=== PATIENT | male | born 1945 | race African-American/Black ===

== ENCOUNTER 2018-09-07 16:58 | Inpatient (IN) | payer OTHER ==
[2018-09-07 18:41] VITALS: BMI 23.5
--- NOTE | 2018-09-07 20:52 | HP ---
CIWA Score Nausea/Vomitin-Mild Nausea/No Vomiting Muscle Tremors: 3 Anxiety: 2 Agitation: 2 Paroxysmal Sweats: 1-Minimal Palms Moist Orientation: 1-Uncertain about Date Tacttile Disturbances: 2-Mild Itch/Numbness/Burn Auditory Disturbances: 0-None Visual Disturbances: 0-None Headache: 0-None Present CIWA-Ar Total Score: 12 - Admission Criteria OASAS Guidelines: Admission for Medically Managed Detox: Requires at least one of the followin. CIWA greater than 12 2. Seizures within the past 24 hours 3. Delirium tremens within the past 24 hours 4. Hallucinations within the past 24 hours 5. Acute intervention needed for co occurring medical disorder 6. Acute intervention needed for co occurring psychiatric disorder 7. Severe withdrawal that cannot be handled at a lower level of care (continued vomiting, continued diarrhea, abnormal vital signs) requiring intravenous medication and/or fluids 8. Patient presents the following: CIWA greater than 12 Admission Criteria Met: Admission criteria met Admission ROS S - HPI Chief Complaint: " Alcohol detox" Allergies/Adverse Reactions: Allergies Allergy/AdvReac Type Severity Reaction Status Date / Time No Known Allergies Allergy Verified 09/07/18 20:45 History of Present Illness: 73 yo male with hx of nicotine cocaine and alcohol dependence is here seeking alcohol detox. Reports hx of blackouts d/t alcohol use, last episode two months ago. Patient reports the following medical conditions: Prostate Cancer, OA, Gout, HTN. Psych denies hx. Denies suicidal / homicidal ideation Exam Limitations: No Limitations - Ebola screening Have you traveled outside of the country in the last 21 days: No (N) Have you had contact with anyone from an Ebola affected area: No Have you been sick,other than usual withdrawal symptoms: No Do you have a fever: No - Review of Systems Constitutional: Loss of Appetite, Weakness, Unintentional Wgt. Loss EENT: reports: No Symptoms Reported Respiratory: reports: No Symptoms reported Cardiac: reports: Chest Pain, Palpitations GI: reports: Nausea, Poor Appetite, Poor Fluid Intake : reports: See HPI Musculoskeletal: reports: Back Pain, Muscle Pain Integumentary: reports: Dryness, Pruritus Neuro: reports: No Symptoms reported, Dizziness Hematology: reports: No Symptoms Reported Psychiatric: reports: Orientated x3, Anxious Other Systems: Reviewed and Negative Patient History - Patient Medical History Hx Anemia: No Hx Asthma: No Hx Chronic Obstructive Pulmonary Disease (COPD): No Hx Cancer: No Hx Cardiac Disorders: No Hx Congestive Heart Failure: No Hx Hypertension: Yes Hx Hypercholesterolemia: Yes Hx Pacemaker: No HX Cerebrovascular Accident: No Hx Seizures: No Hx Dementia: No Hx Diabetes: No Hx Gastrointestinal Disorders: No Hx Liver Disease: No Hx Genitourinary Disorders: Yes (Prostate CA ) Hx Sexually Transmitted Disorders: Yes (Gonorrhea) Hx Renal Disease (ESRD): No Hx Thyroid Disease: No Hx Human Immunodeficiency Virus (HIV): No Hx Hepatitis C: No Hx Depression: No Hx Suicide Attempt: No Hx Bipolar Disorder: No Hx Schizophrenia: No - Patient Surgical History Past Surgical History: Yes Other Surgical History: Lung tumor removal 46 yo - PPD History Previous Implant?: No Documented Results: Negative w/o proof PPD to be Administered?: Yes - Smoking Cessation Smoking history: Current every day smoker Have you smoked in the past 12 months: Yes Aproximately how many cigarettes per day: 5 Hx Chewing Tobacco Use: No Initiated information on smoking cessation: Yes 'Breaking Loose' booklet given: 09/07/18 - Substance & Tx. History Hx Alcohol Use: Yes Hx Substance Use: Yes Substance Use Type: Alcohol Hx Substance Use Treatment: Yes (Three months ago [facility] ) - Substances Abused alcohol Route: Oral Frequency: Daily Amount used: 1/2 - 1 pint liquor Age of first use: 41 Date of Last Use: 09/05/18 cocaine Route: Inhalation Frequency: 1-2 times per week Amount used: $20 Age of first use: 63 Date of Last Use: 09/05/18 Family Disease History - Family Disease History Family Disease History: Diabetes: Father () Admission Physical Exam [facility] - Vital Signs Vital Signs: Vital Signs - 24 hr 09/07/18 18:39 Temperature 97.5 F L Pulse Rate 83 Respiratory 18 Rate Blood Pressure 155/91 - Physical General Appearance: Yes: Disheveled, Mild Distress, Thin, Tremorous, Anxious HEENTM: Yes: EOMI, Hearing grossly Normal, Normal ENT Inspection, Normocephalic , Normal Voice, SANDRA, Pharynx Normal, Tm's normal, Other (poor dentition) Respiratory: Yes: Chest Non-Tender, Lungs Clear, Normal Breath Sounds, No Respiratory Distress, No Accessory Muscle Use Neck: Yes: Within Normal Limits Breast: Yes: Breast Exam Deferred Cardiology: Yes: Regular Rhythm, Regular Rate Abdominal: Yes: Normal Bowel Sounds, Non Tender, Flat, Soft Genitourinary: Yes: Within Normal Limits Back: Yes: Normal Inspection Musculoskeletal: Yes: full range of Motion, Gait Steady, Pelvis Stable Extremities: Yes: Normal Capillary Refill, Normal Inspection, Normal Range of Motion, Non-Tender Neurological: Yes: 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 NML intact, Fully Oriented, Alert, Motor Strength 5/5, Depressed Affect Integumentary: Yes: Normal Color, Dry, Warm Lymphatic: Yes: Within Normal Limits - Diagnostic (1) Alcohol dependence with withdrawal Current Visit: Yes Status: Acute (2) Hypertension Current Visit: Yes Status: Chronic Qualifiers: Hypertension type: essential hypertension Qualified Code(s): I10 - Essential (primary) hypertension (3) Gout Current Visit: Yes Status: Chronic Qualifiers: Gout site: unspecified site (4) Arthritis Current Visit: Yes Status: Chronic (5) Prostate cancer Current Visit: Yes Status: Acute Cleared for Admission [facility] - Detox or Rehab [facility] Level of Care: Medically Managed Detox Regimen/Protocol: Librium [facility] Breath Alcohol Content Breath Alcohol Content: 0 Urine Drug Screen - Results Drug Screen Negative: No Urine Drug Screen Results: THC-Marijuana, K[place]-Cocaine Inpatient Rehab Admission - Rehab Decision to Admit Inpatient rehab admission?: No
[2018-09-07] MEDS ORDERED: BISMUTH SUBSALICYLATE 524 MG/30 ML UD PO PRN (21:01)
[2018-09-07] MEDS ORDERED: BACLOFEN 10 MG TABLET (FP) PO PRN (21:01)
[2018-09-07] MEDS ORDERED: ACETAMINOPHEN 325 MG TABLET (FP) PO PRN ×2 (21:01)
[2018-09-07] MEDS ORDERED: IBUPROFEN 400 MG TABLET (FP) PO PRN (21:01)
[2018-09-07] MEDS ORDERED: MAGNESIUM CITRATE 300 ML BOTTLE PO PRN (21:01)
[2018-09-07] MEDS ORDERED: MAG HYDROX/AL HYDROX/SIMETH 30 ML UNIT-DOSE CUP PO PRN (21:01)
[2018-09-07] MEDS ORDERED: MAGNESIUM HYDROX 2400MG/30ML ORAL SUSPENSION 30 ML CUP PO PRN (21:01)
[2018-09-07] MEDS ORDERED: chlordiazePOXIDE HCL 25 MG CAPSULE PO PRN (21:01)
[2018-09-08] MEDS: chlordiazePOXIDE HCL 25 MG CAPSULE PO SCH ×5 (00:05→22:02)
[2018-09-08] MEDS: THIAMINE HCL 100 MG TABLET (FP) PO SCH ×2 (00:07→22:02)
[2018-09-08] MEDS: MELATONIN 5 MG TABLETS PO PRN ×2 (00:12→22:02)
[2018-09-08] MEDS: LIDOCAINE PATCH REMOVAL MC SCH ×2 (00:12→22:50)
[2018-09-08 01:48] LABS: URINE APPEARANCE SLCLOUDY; URINE COLOR AMBER; URINE GLUCOSE (UA) NEGATIVE (NEGATIVE); URINE KETONE NEGATIVE (NEGATIVE); URINE LEUK ESTERASE NEGATIVE (NEGATIVE); URINE NITRITE NEGATIVE (NEGATIVE); URINE PROTEIN 2+ (NEGATIVE); URINE UROBILINOGEN 4.0 E.U/dl mg/dL (0.2-1.0)
[2018-09-08 02:07] LABS: EPI CELLS RARE /HPF (FEW); URINE HYALINE CAST 12 /lpf; URINE MUCUS FEW
[2018-09-08] MEDS: PRENATAL VITAMINS W/ FOLIC ACID TABLET (FP) PO SCH (10:17)
[2018-09-08] MEDS: LIDOCAINE 5% TOPICAL PATCH TP SCH (10:18)
--- NOTE | 2018-09-08 10:45 | EKG ---
Test Reason : Blood Pressure : / mmHG Vent. Rate : 076 BPM Atrial Rate : 076 BPM P-R Int : 152 ms QRS Dur : 092 ms QT Int : 394 ms P-R-T Axes : 063 007 043 degrees QTc Int : 443 ms NORMAL SINUS RHYTHM NORMAL ECG NO PREVIOUS ECGS AVAILABLE Confirmed by Chapo Linder MD ([id number]) on 09/08/2018 10:44:40 AM Referred By: LUDIN BURNS Confirmed By:Chapo Linder MD
[2018-09-08] MEDS ORDERED: SODIUM CHLORIDE NASAL SPRAY 44 ML BOTTLE NS PRN (11:05)
--- NOTE | 2018-09-08 11:05 | PN ---
S CIWA - CIWA Score Nausea/Vomitin-No Nausea/No Vomiting Muscle Tremors: 3 Anxiety: 3 Agitation: 3 Paroxysmal Sweats: 3 Orientation: 0-Oriented Tacttile Disturbances: 0-None Auditory Disturbances: 0-None Visual Disturbances: 0-None Headache: 0-None Present CIWA-Ar Total Score: 12 S Progress Note (SOAP) Subjective: nasal congestions sweats irritable tired shakes Objective: 09/08/18 11:03 Vital Signs Temperature 97.4 F L 09/08/18 09:33 Pulse Rate 77 09/08/18 09:33 Respiratory Rate 18 09/08/18 09:33 Blood Pressure 138/77 09/08/18 09:33 O2 Sat by Pulse Oximetry (%) Laboratory Tests 09/07/18 23:10 Urine Color [place] Urine Appearance Slcloudy Urine pH 5.0 Ur Specific [place] 1.026 Urine Protein 2+ H Urine Glucose (UA) Negative Urine Ketones Negative Urine Blood Negative Urine Nitrite Negative Urine Bilirubin 4.0 Urine Urobilinogen 4.0 e.u/dl Ur Leukocyte Esterase Negative Urine WBC (Auto) 5 Urine RBC (Auto) 1 Ur Epithelial Cells Rare Hyaline Casts 12 Urine Mucus Few rest of lab pending aaox3 ambulating no acute distress Assessment: 09/08/18 11:04 withdrawal sx Plan: continue detox increase fluids pending labs
[2018-09-08 11:21] LABS: HEMATOCRIT 36.7 % (35.4-49); MCH 36.4 pg (25.7-33.7); MCHC 35.3 g/dl (32.0-35.9); MEAN CELL VOLUME 103.1 fl (80-96); MEAN PLT VOLUME 8.7 fl (7.5-11.1); PLATELET COUNT 134 K/MM3 (134-434); RBC 3.56 M/mm3 (4.00-5.60); RDW 13.4 % (11.9-15.9); WHITE BLOOD COUNT 3.6 K/mm3 (4.0-10.0)
[2018-09-08 11:42] LABS: ALK PHOS 76 U/L (45-117); ANION GAP 6 MMOL/L (8-16); BILIRUBIN,TOTAL 0.6 mg/dL (0.2-1); BLOOD UREA NITROGEN 8 mg/dL (7-18); CALCIUM 8.1 mg/dL (8.5-10.1); CHLORIDE 104 mmol/L (98-107); CO2 31 mmol/L (21-32); CREATININE 0.9 mg/dL (0.55-1.3); GLUCOSE,RANDOM 90 mg/dL (74-106); SGOT/AST 136 U/L (15-37); SGPT/ALT 67 U/L (13-61); SODIUM 141 mmol/L (136-145); TOT PROT 6.8 g/dl (6.4-8.2)
[2018-09-08] MEDS ORDERED: FLU VACCINE QUAD 60 MCG/0.5 ML (MDV 18-19) IM ONE (12:00)
[2018-09-08] MEDS: TAMSULOSIN HCL 0.4 MG CAP PO SCH (22:02)
[2018-09-08] MEDS: amLODIPine BESYLATE 10 MG TABLET (FP) PO SCH (22:02)
[2018-09-09] MEDS: chlordiazePOXIDE HCL 25 MG CAPSULE PO SCH ×3 (05:32→18:17)
[2018-09-09] MEDS: PRENATAL VITAMINS W/ FOLIC ACID TABLET (FP) PO SCH (10:34)
[2018-09-09] MEDS: amLODIPine BESYLATE 10 MG TABLET (FP) PO SCH (10:34)
[2018-09-09] MEDS: LIDOCAINE 5% TOPICAL PATCH TP SCH (10:35)
--- NOTE | 2018-09-09 11:43 | PN ---
[facility] CIWA - CIWA Score Nausea/Vomitin-No Nausea/No Vomiting Muscle Tremors: 3 Anxiety: 2 Agitation: 3 Paroxysmal Sweats: 2 Orientation: 0-Oriented Tacttile Disturbances: 0-None Auditory Disturbances: 0-None Visual Disturbances: 0-None Headache: 0-None Present CIWA-Ar Total Score: 10 [facility] Progress Note (SOAP) Subjective: agitation sweats body aches Objective: 09/09/18 11:42 Vital Signs Temperature 97.3 F L 09/09/18 09:47 Pulse Rate 84 09/09/18 09:47 Respiratory Rate 18 09/09/18 09:47 Blood Pressure 132/77 09/09/18 09:47 O2 Sat by Pulse Oximetry (%) Laboratory Tests 09/07/18 09/08/18 09/08/18 23:10 07:30 07:30 WBC 3.6 L RBC 3.56 L Hgb 13.0 Hct 36.7 MCV 103.1 H MCH 36.4 H MCHC 35.3 RDW 13.4 Plt Count 134 MPV 8.7 Sodium 141 Potassium 3.0 L Chloride 104 Carbon Dioxide 31 Anion Gap 6 L BUN 8 Creatinine 0.9 Creat Clearance w eGFR 82.95 Random Glucose 90 Calcium 8.1 L Total Bilirubin 0.6 AST 136 H ALT 67 H Alkaline Phosphatase 76 Total Protein 6.8 Albumin 3.0 L Urine Color [place] Urine Appearance Slcloudy Urine pH 5.0 Ur Specific [place] 1.026 Urine Protein 2+ H Urine Glucose (UA) Negative Urine Ketones Negative Urine Blood Negative Urine Nitrite Negative Urine Bilirubin 4.0 Urine Urobilinogen 4.0 e.u/dl Ur Leukocyte Esterase Negative Urine WBC (Auto) 5 Urine RBC (Auto) 1 Ur Epithelial Cells Rare Hyaline Casts 12 Urine Mucus Few RPR Titer 09/08/18 07:30 WBC RBC Hgb Hct MCV MCH MCHC RDW Plt Count MPV Sodium Potassium Chloride Carbon Dioxide Anion Gap BUN Creatinine Creat Clearance w eGFR Random Glucose Calcium Total Bilirubin AST ALT Alkaline Phosphatase Total Protein Albumin Urine Color Urine Appearance Urine pH Ur Specific [place] Urine Protein Urine Glucose (UA) Urine Ketones Urine Blood Urine Nitrite Urine Bilirubin Urine Urobilinogen Ur Leukocyte Esterase Urine WBC (Auto) Urine RBC (Auto) Ur Epithelial Cells Hyaline Casts Urine Mucus RPR Titer Nonreactive labs noted potassium low will order kdur to replenish repeat labs ordered Assessment: 09/09/18 11:43 withdrawal sx Plan: continue detox increase fluids kdur x 2 days labs repeated
[2018-09-09] MEDS ORDERED: POTASSIUM CHLORIDE TABS 20 MEQ TABLET.ER (FP) PO SCH (11:45)
[2018-09-09] MEDS ORDERED: PNEUMOC 13-VAL CONJ-DIP CRM/PF 0.5 ML DISP.SYRIN IM ONE (12:00)
[2018-09-09] MEDS: POTASSIUM CHLORIDE TABS 20 MEQ TABLET.ER (FP) PO SCH (14:01)
[2018-09-09] MEDS: TAMSULOSIN HCL 0.4 MG CAP PO SCH (22:04)
[2018-09-09] MEDS: THIAMINE HCL 100 MG TABLET (FP) PO SCH (22:04)
[2018-09-09] MEDS: chlordiazePOXIDE HCL 10 MG CAPSULE PO SCH (22:04)
[2018-09-09] MEDS: MELATONIN 5 MG TABLETS PO PRN (22:05)
[2018-09-09] MEDS: LIDOCAINE PATCH REMOVAL MC SCH (22:06)
[2018-09-09] MEDS ORDERED: chlordiazePOXIDE HCL 10 MG CAPSULE PO PRN (23:00)
[2018-09-10] MEDS: chlordiazePOXIDE HCL 10 MG CAPSULE PO SCH ×4 (05:47→22:32)
[2018-09-10] MEDS: amLODIPine BESYLATE 10 MG TABLET (FP) PO SCH (10:50)
[2018-09-10] MEDS: PRENATAL VITAMINS W/ FOLIC ACID TABLET (FP) PO SCH (10:50)
[2018-09-10] MEDS: POTASSIUM CHLORIDE TABS 20 MEQ TABLET.ER (FP) PO SCH (10:51)
[2018-09-10] MEDS: LIDOCAINE 5% TOPICAL PATCH TP SCH (10:53)
[2018-09-10 11:03] LABS: BASO % 0.4 % (0-2.0); EOS % 4.3 % (0-4.5); HEMATOCRIT 35.3 % (35.4-49); LYMPH % 19.3 % (8-40); MCH 35.3 pg (25.7-33.7); MCHC 33.9 g/dl (32.0-35.9); MEAN PLT VOLUME 8.9 fl (7.5-11.1); MONO % 12.3 % (3.8-10.2); NEUT % 63.7 % (42.8-82.8); PLATELET COUNT 137 K/MM3 (134-434); RBC 3.39 M/mm3 (4.00-5.60); WHITE BLOOD COUNT 3.6 K/mm3 (4.0-10.0)
[2018-09-10 13:22] LABS: ALBUMIN 2.9 g/dl (3.4-5.0); ALK PHOS 69 U/L (45-117); BILIRUBIN,TOTAL 0.2 mg/dL (0.2-1); BLOOD UREA NITROGEN 13 mg/dL (7-18); CALCIUM 8.8 mg/dL (8.5-10.1); CHLORIDE 107 mmol/L (98-107); CREATININE 0.9 mg/dL (0.55-1.3); GLUCOSE,RANDOM 89 mg/dL (74-106); POTASSIUM 3.4 mmol/L (3.5-5.1); SGPT/ALT 58 U/L (13-61); SODIUM 142 mmol/L (136-145); TOT PROT 6.4 g/dl (6.4-8.2)
[2018-09-10 13:55] LABS: ANION GAP 6 MMOL/L (8-16); CO2 30 mmol/L (21-32); SGOT/AST 91 U/L (15-37)
--- NOTE | 2018-09-10 14:58 | PN ---
S Progress Note (SOAP) Subjective: Body Aches, Anxious, Fatigue. Objective: PATIENT A & O X 3, OBSERVED AMBULATING ON UNIT. IN NO ACUTE DISTRESS. 09/10/18 14:55 Vital Signs Temperature 97.1 F L 09/10/18 14:08 Pulse Rate 77 09/10/18 14:08 Respiratory Rate 16 09/10/18 14:08 Blood Pressure 148/78 09/10/18 14:08 O2 Sat by Pulse Oximetry (%) Laboratory Tests 09/07/18 09/08/18 09/08/18 23:10 07:30 07:30 WBC 3.6 L RBC 3.56 L Hgb 13.0 Hct 36.7 MCV 103.1 H MCH 36.4 H MCHC 35.3 RDW 13.4 Plt Count 134 MPV 8.7 Absolute Neuts (auto) Neutrophils % Lymphocytes % Monocytes % Eosinophils % Basophils % Nucleated RBC % Sodium 141 Potassium 3.0 L Chloride 104 Carbon Dioxide 31 Anion Gap 6 L BUN 8 Creatinine 0.9 Creat Clearance w eGFR 82.95 Random Glucose 90 Calcium 8.1 L Total Bilirubin 0.6 AST 136 H ALT 67 H Alkaline Phosphatase 76 Total Protein 6.8 Albumin 3.0 L Urine Color [place] Urine Appearance Slcloudy Urine pH 5.0 Ur Specific [place] 1.026 Urine Protein 2+ H Urine Glucose (UA) Negative Urine Ketones Negative Urine Blood Negative Urine Nitrite Negative Urine Bilirubin 4.0 Urine Urobilinogen 4.0 e.u/dl Ur Leukocyte Esterase Negative Urine WBC (Auto) 5 Urine RBC (Auto) 1 Ur Epithelial Cells Rare Hyaline Casts 12 Urine Mucus Few RPR Titer 09/08/18 09/10/18 09/10/18 07:30 07:30 07:30 WBC 3.6 L RBC 3.39 L Hgb 12.0 Hct 35.3 L MCV 104.0 H MCH 35.3 H MCHC 33.9 RDW 14.0 Plt Count 137 MPV 8.9 Absolute Neuts (auto) 2.3 Neutrophils % 63.7 Lymphocytes % 19.3 Monocytes % 12.3 H Eosinophils % 4.3 Basophils % 0.4 Nucleated RBC % 0 Sodium 142 Potassium 3.4 L Chloride 107 Carbon Dioxide 30 Anion Gap 6 L BUN 13 Creatinine 0.9 Creat Clearance w eGFR 82.95 Random Glucose 89 Calcium 8.8 Total Bilirubin 0.2 AST 91 H ALT 58 Alkaline Phosphatase 69 Total Protein 6.4 Albumin 2.9 L Urine Color Urine Appearance Urine pH Ur Specific [place] Urine Protein Urine Glucose (UA) Urine Ketones Urine Blood Urine Nitrite Urine Bilirubin Urine Urobilinogen Ur Leukocyte Esterase Urine WBC (Auto) Urine RBC (Auto) Ur Epithelial Cells Hyaline Casts Urine Mucus RPR Titer Nonreactive LABS NOTED.RESULTS OF REPEAT CBC AND CMP NOTED. REDUCTION IN AST LEVEL NOTED. ALT AND CA LEVELS NOW NOTED TO BE WITHIN NORMAL RANGE. 09/10/18 14:56 Assessment: 09/10/18 14:55 WITHDRAWAL SYMPTOMS. HYPERTENSION ELEVATED LIVER ENZYMES. HYPOKALEMIA. 09/10/18 14:55 Plan: CONTINUE DETOX. INCREASE DAILY PO FLUID INTAKE. CONTINUE K-DUR (PATIENT STILL HYPOKALEMIC NOTED ON REPEAT CMP).
[2018-09-10] MEDS ORDERED: cloNIDine HCL 0.1 MG TABLET PO ONE (17:56)
--- NOTE | 2018-09-10 17:58 | PN ---
S Progress Note Note: Vital Signs Temperature 98.4 F 09/10/18 17:07 Pulse Rate 89 09/10/18 17:07 Respiratory Rate 18 09/10/18 17:07 Blood Pressure 146/101 H 09/10/18 17:07 O2 Sat by Pulse Oximetry (%) asymptomatic elevated bp withdrawal sx one time dose clonidine 0.1 mg increase po fluids repeat bp in 1/2 hr continue to monitor
[2018-09-10] MEDS ORDERED: POTASSIUM CHLORIDE TABS 20 MEQ TABLET.ER (FP) PO ONE (18:00)
[2018-09-10] MEDS: TAMSULOSIN HCL 0.4 MG CAP PO SCH (22:32)
[2018-09-10] MEDS: THIAMINE HCL 100 MG TABLET (FP) PO SCH (22:32)
[2018-09-10] MEDS: LIDOCAINE PATCH REMOVAL MC SCH (22:35)
[2018-09-11] MEDS: PRENATAL VITAMINS W/ FOLIC ACID TABLET (FP) PO SCH (10:14)
[2018-09-11] MEDS: amLODIPine BESYLATE 10 MG TABLET (FP) PO SCH (10:14)
[2018-09-11] MEDS: chlordiazePOXIDE HCL 10 MG CAPSULE PO SCH ×2 (10:14→22:14)
[2018-09-11] MEDS: POTASSIUM CHLORIDE TABS 20 MEQ TABLET.ER (FP) PO SCH (10:15)
[2018-09-11] MEDS: LIDOCAINE 5% TOPICAL PATCH TP SCH (10:15)
--- NOTE | 2018-09-11 13:47 | PN ---
S Progress Note (SOAP) Subjective: alert,irritable,interrupted sleep Objective: 09/11/18 13:46 Vital Signs Temperature 96.3 F L 09/11/18 09:14 Pulse Rate 80 09/11/18 09:14 Respiratory Rate 16 09/11/18 09:14 Blood Pressure 153/94 09/11/18 09:14 O2 Sat by Pulse Oximetry (%) Assessment: 09/11/18 13:46 withdrawal symptom Plan: continue detox,discharge in am
[2018-09-11] MEDS: THIAMINE HCL 100 MG TABLET (FP) PO SCH (22:14)
[2018-09-11] MEDS: TAMSULOSIN HCL 0.4 MG CAP PO SCH (22:14)
[2018-09-11] MEDS: LIDOCAINE PATCH REMOVAL MC SCH (22:40)
[2018-09-12 09:31] VITALS: BP 159/81; PULSE 75; TEMP 98.6
[2018-09-12] MEDS: amLODIPine BESYLATE 10 MG TABLET (FP) PO SCH (10:20)
[2018-09-12] MEDS: PRENATAL VITAMINS W/ FOLIC ACID TABLET (FP) PO SCH (10:20)
[2018-09-12] MEDS: LIDOCAINE 5% TOPICAL PATCH TP SCH (10:21)
--- NOTE | 2018-09-12 15:17 | PN ---
S Progress Note (SOAP) Subjective: no complaints offered Objective: 09/12/18 15:15 A & O x 3 Ambulates slowly but steadily Vital Signs Temperature 98.6 F 09/12/18 09:30 Pulse Rate 75 09/12/18 09:30 Respiratory Rate 18 09/12/18 09:30 Blood Pressure 159/81 09/12/18 09:30 O2 Sat by Pulse Oximetry (%) Assessment: 09/12/18 15:16 detox completed Plan: for d/c
--- NOTE | 2018-09-12 15:20 | DS ---
[facility] Detox Discharge Summary Admission Date: 09/07/18 Discharge Date: 09/12/18 - History Additional Comments: detox completed in stable condition Requested Prescriptions sent to pt's pharmacy on file Will see his PMD Dr Wells @ the clinic on [address] in the week Will attend AA meetings as much as he can - Physical Exam Results Vital Signs: Vital Signs Temperature 98.6 F 09/12/18 09:30 Pulse Rate 75 09/12/18 09:30 Respiratory Rate 18 09/12/18 09:30 Blood Pressure 159/81 09/12/18 09:30 O2 Sat by Pulse Oximetry (%) Pertinent Admission Physical Exam Findings: withdrawal sx - Treatment Hospital Course: Detox Protocol Followed, Detoxed Safely, Responded well, Discharged Condition Good - Medication Discharge Medications: Ambulatory Orders Escitalopram Oxalate [Lexapro -] 10 mg PO DAILY 09/07/18 Ferrous Fum/Vit C/B12-If/Folic [Ferocon Capsule] 1 each PO DAILY 09/07/18 Folic Acid - 1 mg PO DAILY 09/07/18 Amlodipine Besylate 10 mg PO DAILY 30 Days #30 tablet 09/10/18 Allopurinol [Zyloprim -] 100 mg PO DAILY 14 Days #14 tablet 09/12/18 Etodolac 500 mg PO BID PRN 14 Days #14 tablet 09/12/18 Tamsulosin HCl [Flomax] 0.4 mg PO HS 14 Days #14 capsule 09/12/18 - AMA Did Patient Leave Against Medical Advice: No
== END 2018-09-12 11:37 | disposition home or self-care (01) | DRG 897 ==
LOC: YASAS 16:58 → Y6N 23:14
PROVIDERS: ADMIT Surgery; ATTEND Surgery
PROC: HZ2ZZZZ Detoxification Services for Substance Abuse Treatment (ICD-10-PCS; principal; 2018-09-08)
DX: F10.230 Alcohol dependence with withdrawal, uncomplicated (principal); I10 Essential (primary) hypertension; E87.6 Hypokalemia; R94.5 Abnormal results of liver function studies; R74.8 Abnormal levels of other serum enzymes; M10.9 Gout, unspecified; M12.9 Arthropathy, unspecified; Z85.46 Personal history of malignant neoplasm of prostate; Z86.19 Personal history of other infectious and parasitic diseases
CPT/HCPCS: 36415; 80053; 81003; 81015; 85025; 85027; 86593; 93005; 93010; J0735

== ENCOUNTER 2018-09-14 12:11 | Inpatient (IN) | payer OTHER ==
[2018-09-14 13:52] VITALS: BMI 22.5
--- NOTE | 2018-09-14 15:50 | HP ---
CIWA Score - Admission Criteria OASAS Guidelines: Admission for Medically Managed Detox: Requires at least one of the followin. CIWA greater than 12 2. Seizures within the past 24 hours 3. Delirium tremens within the past 24 hours 4. Hallucinations within the past 24 hours 5. Acute intervention needed for co occurring medical disorder 6. Acute intervention needed for co occurring psychiatric disorder 7. Severe withdrawal that cannot be handled at a lower level of care (continued vomiting, continued diarrhea, abnormal vital signs) requiring intravenous medication and/or fluids 8. Admission ROS [facility] Chief Complaint: PATIENT PRESENTS FOR REHAB FOR ETOH/K[place] DEPENDENCE Allergies/Adverse Reactions: Allergies Allergy/AdvReac Type Severity Reaction Status Date / Time No Known Allergies Allergy Verified 09/07/18 20:45 History of Present Illness: PATIENT IS KNOWN TO [facility] HE RECENTLY COMPLETED DETOX HERE FROM 09/07-09/12/18. PATIENT STATES HE STARTED DRINKING AT AGE 21, 1/2 PINT 3-6 X PER WEEK AND SNIFFING COCAINE AT AGE 41. JUVE 0.00. PATIENT SNIFFS 1-2 X PER WEEK A HALF OF BAG OF COCAINE. UDS +BZO, KENTON, THC. PMH INCLUDES HTN, HLD, OA, GOUT AND BPH. PATIENT DENIES SI/HI AND SUICIDE ATTEMPTS. Exam Limitations: No Limitations - Ebola screening Have you traveled outside of the country in the last 21 days: No Have you had contact with anyone from an Ebola affected area: No Have you been sick,other than usual withdrawal symptoms: No Do you have a fever: No - Review of Systems Constitutional: No Symptoms Reported EENT: reports: No Symptoms Reported Respiratory: reports: No Symptoms reported Cardiac: reports: No Symptoms Reported GI: reports: Poor Fluid Intake : reports: Other (NOCTURIA) Musculoskeletal: reports: Back Pain, Joint Pain Integumentary: reports: Rash (FACIAL RASH) Neuro: reports: No Symptoms reported Endocrine: reports: No Symptoms Reported Hematology: reports: No Symptoms Reported Psychiatric: reports: Judgement Intact, Mood/Affect Appropiate, Orientated x3 Patient History - Patient Medical History Hx Anemia: No Hx Asthma: No Hx Chronic Obstructive Pulmonary Disease (COPD): No Hx Cancer: No Hx Cardiac Disorders: No Hx Congestive Heart Failure: No Hx Hypertension: Yes Hx Hypercholesterolemia: Yes Hx Pacemaker: No HX Cerebrovascular Accident: No Hx Seizures: No Hx Dementia: No Hx Diabetes: No Hx Gastrointestinal Disorders: No Hx Liver Disease: No Hx Genitourinary Disorders: No Hx Sexually Transmitted Disorders: Yes (Gonorrhea in the past) Hx Renal Disease (ESRD): No Hx Thyroid Disease: No Hx Human Immunodeficiency Virus (HIV): No Hx Hepatitis C: No Hx Depression: No Hx Suicide Attempt: No Hx Bipolar Disorder: No Hx Schizophrenia: No - Patient Surgical History Past Surgical History: Yes Hx Neurologic Surgery: No Hx Cataract Extraction: No Hx Cardiac Surgery: No Hx Lung Surgery: No Hx Breast Surgery: No Hx Breast Biopsy: No Hx Abdominal Surgery: No Hx Appendectomy: No Hx Cholecystectomy: No Hx Genitourinary Surgery: No Hx Orthopedic Surgery: No Other Surgical History: Lung tumor removal 46 yo Anesthesia Reaction: No - PPD History Previous Implant?: Yes Documented Results: Negative w/proof Date: 09/10/18 PPD to be Administered?: No - Smoking Cessation Smoking history: Current every day smoker Have you smoked in the past 12 months: Yes Aproximately how many cigarettes per day: 5 Hx Chewing Tobacco Use: No Initiated information on smoking cessation: Yes 'Breaking Loose' booklet given: 09/14/18 - Substance & Tx. History Hx Alcohol Use: Yes Hx Substance Use: Yes Substance Use Type: Alcohol, Cocaine, Marijuana Hx Substance Use Treatment: Yes - Substances Abused Alcohol Route: Oral Frequency: 3-6 times per week Amount used: 1/2 pint Age of first use: 21 Date of Last Use: 09/07/18 Cocaine Route: Inhalation Frequency: 1-2 times per week Amount used: 1/2 bag Age of first use: 41 Date of Last Use: 09/07/18 Family Disease History - Family Disease History Family Disease History: Diabetes: Father () Admission Physical Exam [facility] - Vital Signs Vital Signs: Vital Signs - 24 hr 09/14/18 13:50 Temperature 96.8 F L Pulse Rate 61 Respiratory 18 Rate Blood Pressure 177/88 H - Physical General Appearance: Yes: Nourished, Disheveled HEENTM: Yes: EOMI, Hearing grossly Normal, Normocephalic, Normal Voice, SANDRA, Pharynx Normal Respiratory: Yes: Chest Non-Tender, Lungs Clear, Normal Breath Sounds, No Respiratory Distress, No Accessory Muscle Use Neck: Yes: No masses,lesions,Nodules, Supple, Trachea in good position Breast: Yes: Breast Exam Deferred Cardiology: Yes: Regular Rhythm, Regular Rate, S1, S2 Abdominal: Yes: Normal Bowel Sounds, Non Tender, Soft Genitourinary: Yes: Within Normal Limits Back: Yes: Normal Inspection Musculoskeletal: Yes: full range of Motion, Gait Steady, Joint Stiffness, Muscle Pain Extremities: Yes: Normal Inspection, Normal Range of Motion, Non-Tender Neurological: Yes: 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 NML intact, Fully Oriented, Alert, Motor Strength 5/5, Normal Mood/Affect, Normal Response Integumentary: Yes: Dry, Warm, Rash (RED FACIAL RASH TO NOSE AND CHEEKS) Lymphatic: Yes: Within Normal Limits (FACIAL RASH) Cleared for Admission [facility] - Detox or Rehab Claeared for Rehab Admission: Yes [facility] Breath Alcohol Content Breath Alcohol Content: 0 Urine Drug Screen - Results Drug Screen Negative: No Urine Drug Screen Results: THC-Marijuana, [place]-Cocaine, BZO-Benzodiazepines Inpatient Rehab Admission - Rehab Decision to Admit Inpatient rehab admission?: Yes - Initial Determination Are CD services needed?: Yes Free of communicable disease: Yes Not in need of hospitalization: Yes - Rehab Admission Criteria Previous failed treatment: No Poor recovery environment: Yes Comorbidities: Yes Lacks judgement: No Patient is meeting Inpatient Rehab admission criteria:: Yes
[2018-09-14] MEDS ORDERED: P-EPHED 60MG/TRIPROLIDI 2.5MG TABLET PO PRN (15:55)
[2018-09-14] MEDS ORDERED: MAG HYDROX/AL HYDROX/SIMETH 30 ML UNIT-DOSE CUP PO PRN (15:55)
[2018-09-14] MEDS ORDERED: MAGNESIUM HYDROX 2400MG/30ML ORAL SUSPENSION 30 ML CUP PO PRN (15:55)
[2018-09-14] MEDS ORDERED: guaiFENesin 200 MG/10 ML 10 ML UNIT-DOSE CUPS PO PRN (15:55)
[2018-09-14] MEDS ORDERED: MAGNESIUM CITRATE 300 ML BOTTLE PO PRN (15:55)
[2018-09-14] MEDS ORDERED: LOPERAMIDE HCL 2 MG CAPSULE PO PRN (15:55)
[2018-09-14] MEDS ORDERED: NICOTINE POLACRILEX 2 MG GUM BC PRN (15:55)
[2018-09-14] MEDS ORDERED: hydrOXYzine PAMOATE 25 MG CAPSULE (FP) PO PRN (15:55)
[2018-09-14] MEDS ORDERED: ACETAMINOPHEN 325 MG TABLET (FP) PO PRN (15:55)
[2018-09-14] MEDS ORDERED: MENTHOL/PHENOL 1 EACH UD MM PRN (15:55)
[2018-09-14] MEDS: IBUPROFEN 400 MG TABLET (FP) PO PRN (18:53)
[2018-09-14] MEDS ORDERED: amLODIPine BESYLATE 10 MG TABLET (FP) PO ONE (18:59)
--- NOTE | 2018-09-14 19:00 | PN ---
[facility] Progress Note Note: Vital Signs Temperature 96.8 F L 09/14/18 13:50 Pulse Rate 61 09/14/18 13:50 Respiratory Rate 18 09/14/18 13:50 Blood Pressure 177/88 H 09/14/18 13:50 O2 Sat by Pulse Oximetry (%) Patient asymptomatic elevated BP, patient did not take todays dose of Norvasc. one time chi of 10 mg ordered increase Po fluids continue to monitor
[2018-09-14] MEDS: TAMSULOSIN HCL 0.4 MG CAP PO SCH (21:24)
[2018-09-14] MEDS: ATORVASTATIN CA 10 MG TABLET (FP) PO SCH (21:24)
[2018-09-14] MEDS: MELATONIN 5 MG TABLETS PO PRN (21:24)
[2018-09-14] MEDS: THIAMINE HCL 100 MG TABLET (FP) PO SCH (21:24)
[2018-09-14] MEDS: MINERAL OIL/PETROLAT/WATER TOPICAL CREAM 113 GM JAR TP SCH (21:25)
[2018-09-15 05:09] LABS: URINE APPEARANCE CLEAR; URINE BILIRUBIN NEGATIVE (NEGATIVE); URINE COLOR DK YELLOW; URINE GLUCOSE (UA) NEGATIVE (NEGATIVE); URINE KETONE TRACE (NEGATIVE); URINE LEUK ESTERASE NEGATIVE (NEGATIVE); URINE NITRITE NEGATIVE (NEGATIVE); URINE PROTEIN NEGATIVE (NEGATIVE); URINE UROBILINOGEN 0.2 mg/dL (0.2-1.0)
[2018-09-15] MEDS: PRENATAL VITAMINS W/ FOLIC ACID TABLET (FP) PO SCH (09:49)
[2018-09-15] MEDS: amLODIPine BESYLATE 10 MG TABLET (FP) PO SCH (09:49)
[2018-09-15] MEDS: NICOTINE 7 MG/24 HOURS TOPICAL PATCH TD SCH (09:49)
[2018-09-15] MEDS: IBUPROFEN 400 MG TABLET (FP) PO PRN (09:51)
[2018-09-15] MEDS: MINERAL OIL/PETROLAT/WATER TOPICAL CREAM 113 GM JAR TP SCH ×2 (10:54→21:11)
--- NOTE | 2018-09-15 11:28 | PN ---
[facility] Progress Note Note: C/O LOWER BACK PAIN AND REQUESTING LIDOCAINE PATCH. NEW PT ADMITTED TO REHAB. ALERT O X 3. Vital Signs (72 hours) 09/14/18 09/14/18 09/15/18 13:50 18:20 00:30 Temperature 96.8 F L 97.2 F L Pulse Rate 61 64 Respiratory 18 18 18 Rate Blood Pressure 177/88 H 160/76 09/15/18 09/15/18 09/15/18 03:30 06:44 10:00 Temperature 97.4 F L Pulse Rate 76 71 Respiratory 18 18 Rate Blood Pressure 147/87 135/69 PLAN:LIDOCAINE PATCH 5% DIRECTED.
[2018-09-15] MEDS: LIDOCAINE 5% TOPICAL PATCH TP SCH (12:02)
[2018-09-15 15:54] LABS: ALBUMIN 3.3 g/dl (3.4-5.0); ALK PHOS 85 U/L (45-117); ANION GAP 7 MMOL/L (8-16); BILIRUBIN,TOTAL 0.3 mg/dL (0.2-1); BLOOD UREA NITROGEN 11 mg/dL (7-18); CALCIUM 8.8 mg/dL (8.5-10.1); CHLORIDE 106 mmol/L (98-107); CO2 29 mmol/L (21-32); GLUCOSE,RANDOM 85 mg/dL (74-106); POTASSIUM 3.5 mmol/L (3.5-5.1); SGOT/AST 85 U/L (15-37); SGPT/ALT 61 U/L (13-61); SODIUM 142 mmol/L (136-145); TOT PROT 7.3 g/dl (6.4-8.2)
[2018-09-15] MEDS: THIAMINE HCL 100 MG TABLET (FP) PO SCH (21:10)
[2018-09-15] MEDS: TAMSULOSIN HCL 0.4 MG CAP PO SCH (21:10)
[2018-09-15] MEDS: MELATONIN 5 MG TABLETS PO PRN (21:10)
[2018-09-15] MEDS: ATORVASTATIN CA 10 MG TABLET (FP) PO SCH (21:10)
[2018-09-15] MEDS: LIDOCAINE PATCH REMOVAL MC SCH (21:11)
[2018-09-16] MEDS: PRENATAL VITAMINS W/ FOLIC ACID TABLET (FP) PO SCH (10:03)
[2018-09-16] MEDS: IBUPROFEN 400 MG TABLET (FP) PO PRN (10:03)
[2018-09-16] MEDS: amLODIPine BESYLATE 10 MG TABLET (FP) PO SCH (10:03)
[2018-09-16] MEDS: LIDOCAINE 5% TOPICAL PATCH TP SCH (10:04)
[2018-09-16] MEDS: MINERAL OIL/PETROLAT/WATER TOPICAL CREAM 113 GM JAR TP SCH ×2 (10:04→21:04)
[2018-09-16] MEDS: NICOTINE 7 MG/24 HOURS TOPICAL PATCH TD SCH (10:05)
[2018-09-16] MEDS: THIAMINE HCL 100 MG TABLET (FP) PO SCH (21:03)
[2018-09-16] MEDS: ATORVASTATIN CA 10 MG TABLET (FP) PO SCH (21:03)
[2018-09-16] MEDS: TAMSULOSIN HCL 0.4 MG CAP PO SCH (21:03)
[2018-09-16] MEDS: MELATONIN 5 MG TABLETS PO PRN (21:04)
[2018-09-16] MEDS: LIDOCAINE PATCH REMOVAL MC SCH (21:04)
[2018-09-17 06:53] VITALS: BP 146/86; PULSE 69; TEMP 97.6
--- NOTE | 2018-09-17 10:03 | PN ---
[facility] Progress Note Note: PT WAS SEEN THIS MORNING DRESSED UP AND STATES HE IS READY TO LEAVE. ASKED PT REASON FOR LEAVING, PT STATES A'I HAVE EMERGENCY, MY DAUGHTER IS SICK". PT WAS SPOKEN TO BY CORRECTIONAL OFFICER LIEUTENANT AND COUNSELOR ABOUT NEED TO STAY IN TREATMENT AND ALTERNATIVE SOLUTIONS TO HIS EXCUSES BUT PT DECLINED TO ENGAGE. PT REPORTS HE HAS A PCP, DR ADAME AT [address] [place] [address] [place] [address] FOR MEDICAL MANAGEMENT. PT HAS BEEN REFERRED TO FOLLOW [facility] AT [facility] FOR CD AFTERCARE. 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 ALERT O X 3. OOB AMBUTATORY WITH CANE. DENIES S/H/I. Home Medications Medication Instructions Recorded Escitalopram Oxalate [Lexapro -] 10 mg PO DAILY 09/07/18 Ferrous Fum/Vit C/B12-If/Folic 1 each PO DAILY 09/07/18 [Ferocon Capsule] Folic Acid - 1 mg PO DAILY 09/07/18 Amlodipine Besylate 10 mg PO DAILY 30 Days #30 tablet 09/10/18 Etodolac 500 mg PO BID PRN 14 Days #14 09/12/18 tablet Allopurinol [Zyloprim -] 100 mg PO DAILY 14 Days #14 tablet 09/17/18 Atorvastatin Ca [Lipitor] 10 mg PO HS #14 tablet 09/17/18 Tamsulosin HCl [Flomax] 0.4 mg PO HS 14 Days #14 capsule 09/17/18 Vital Signs (72 hours) 09/14/18 09/14/18 09/15/18 13:50 18:20 00:30 Temperature 96.8 F L 97.2 F L Pulse Rate 61 64 Respiratory 18 18 18 Rate Blood Pressure 177/88 H 160/76 09/15/18 09/15/18 09/15/18 03:30 06:44 10:00 Temperature 97.4 F L Pulse Rate 76 71 Respiratory 18 18 Rate Blood Pressure 147/87 135/69 09/16/18 09/16/18 09/16/18 00:30 03:30 06:41 Temperature 97.0 F L Pulse Rate 75 Respiratory 18 18 18 Rate Blood Pressure 133/93 09/17/18 09/17/18 09/17/18 00:30 03:30 06:52 Temperature 97.6 F Pulse Rate 69 Respiratory 18 18 18 Rate Blood Pressure 146/86 Laboratory Tests 09/15/18 09/15/18 09/15/18 00:05 10:40 10:40 Sodium 142 Potassium 3.5 Chloride 106 Carbon Dioxide 29 Anion Gap 7 L BUN 11 Creatinine 1.0 Creat Clearance w eGFR 73.45 Random Glucose 85 Uric Acid 6.5 Calcium 8.8 Total Bilirubin 0.3 AST 85 H ALT 61 Alkaline Phosphatase 85 Total Protein 7.3 Albumin 3.3 L Urine Color Dk yellow Urine Appearance Clear Urine pH 5.0 Ur Specific [place] 1.020 Urine Protein Negative Urine Glucose (UA) Negative Urine Ketones Trace H Urine Blood Negative Urine Nitrite Negative Urine Bilirubin Negative Urine Urobilinogen 0.2 Ur Leukocyte Esterase Negative NAD PLAN:PT SIGNED OUT AMA PT WAS INSTRUCTED TO FOLLOW UP WITH CD AFTERCARE RECOMMENDATION. FOLLOW UP WITH PCP DR ADAME WITHIN 1 WEEK AFTER DISCHARGE. Current Active Problems Alcohol dependence (Chronic) Hypertension (Chronic) Gout (Chronic) Arthritis (Chronic) Prostate cancer (Chronic)
[2018-09-17] MEDS: LIDOCAINE 5% TOPICAL PATCH TP SCH (10:34)
[2018-09-17] MEDS: MINERAL OIL/PETROLAT/WATER TOPICAL CREAM 113 GM JAR TP SCH (10:34)
[2018-09-17] MEDS: NICOTINE 7 MG/24 HOURS TOPICAL PATCH TD SCH (10:34)
[2018-09-17] MEDS: PRENATAL VITAMINS W/ FOLIC ACID TABLET (FP) PO SCH (10:34)
[2018-09-17] MEDS: amLODIPine BESYLATE 10 MG TABLET (FP) PO SCH (10:34)
[2018-09-17] MEDS ORDERED: INSULIN SLIDING SCALE (NOVOLOG) 1 VIAL SQ ONE (12:02)
== END 2018-09-17 10:25 | disposition left against medical advice (07) | DRG 894 ==
LOC: YASAS 12:11 → Y5N 17:02
PROVIDERS: ADMIT Neuromusculoskeletal Medicine & OMM; ATTEND Neuromusculoskeletal Medicine & OMM
PROC: HZ2ZZZZ Detoxification Services for Substance Abuse Treatment (ICD-10-PCS; principal; 2018-09-14)
DX: F10.230 Alcohol dependence with withdrawal, uncomplicated (principal); F17.210 Nicotine dependence, cigarettes, uncomplicated; I10 Essential (primary) hypertension; M10.9 Gout, unspecified; M19.90 Unspecified osteoarthritis, unspecified site; M54.5 Low back pain; Z85.46 Personal history of malignant neoplasm of prostate; Z87.438 Personal history of other diseases of male genital organs
CPT/HCPCS: 36415; 80053; 81003; 84550